=== PATIENT | female | born 1940 | race Caucasian/White ===

== ENCOUNTER → 2019-09-22 | Outpatient (CLI) | payer OTHER ==
[~2019-09-22] MED LIST: AMITRIPTYLINE H25 M2 PO; ASPIR 8181 MG PO; CARDURA4 MG PO; CIPRO500 MG PO; COLACE100 MG PO; COUMADIN 5 MG TA5 M1 PO; CYCLOBENZAPRINE10 MG PO; DUONEB 2.5-0.5 M3 ML INH; FELODIPINE 5 MG5 M1 PO; FLAGYL500 MG PO; FLEXERIL PO; FLONASE 0.05%50 MCG NASAL; LASIX 40 MG TAB40 M2 PO; LEVOTHYROXINE0.05 MG PO; MUCINEX600 MG PO; PIOGLITAZONE30 MG PO; POTASSIUM20 PO; QUINAPRIL HCL40 MG PO; TESSALON PERLE100 MG PO; TORSEMIDE20 MG PO; ZOCOR40 MG PO; ZYRTEC10 MG PO
== END ==
LOC: SJCVC 10:58
PROVIDERS: ATTEND Internal Medicine Cardiovascular Disease
DX: R94.31 Abnormal electrocardiogram [ECG] [EKG] (principal); I44.0 Atrioventricular block, first degree; I44.7 Left bundle-branch block, unspecified; I35.0 Nonrheumatic aortic (valve) stenosis; I27.20 Pulmonary hypertension, unspecified; E78.00 Pure hypercholesterolemia, unspecified; I12.9 Hypertensive chronic kidney disease with stage 1 through stage 4 chronic kidney disease, or unspecified chronic kidney disease; N18.4 Chronic kidney disease, stage 4 (severe); E66.01 Morbid (severe) obesity due to excess calories; Z90.710 Acquired absence of both cervix and uterus; Z90.49 Acquired absence of other specified parts of digestive tract; Z79.899 Other long term (current) drug therapy; Z86.79 Personal history of other diseases of the circulatory system

== ENCOUNTER → 2020-05-17 | Outpatient (CLI) | payer OTHER | LOC: SJCVCIMAG 08:29 | PROVIDERS: ATTEND Internal Medicine Cardiovascular Disease | DX: I34.0 Nonrheumatic mitral (valve) insufficiency (principal); I44.7 Left bundle-branch block, unspecified; R94.31 Abnormal electrocardiogram [ECG] [EKG]; I48.91 Unspecified atrial fibrillation; I13.0 Hypertensive heart and chronic kidney disease with heart failure and stage 1 through stage 4 chronic kidney disease, or unspecified chronic kidney disease; E11.22 Type 2 diabetes mellitus with diabetic chronic kidney disease; N18.4 Chronic kidney disease, stage 4 (severe); I50.9 Heart failure, unspecified; E78.00 Pure hypercholesterolemia, unspecified; R60.9 Edema, unspecified; E03.9 Hypothyroidism, unspecified; E78.5 Hyperlipidemia, unspecified; E66.01 Morbid (severe) obesity due to excess calories; Z79.82 Long term (current) use of aspirin; Z79.899 Other long term (current) drug therapy; Z82.49 Family history of ischemic heart disease and other diseases of the circulatory system; Z87.891 Personal history of nicotine dependence ==

== ENCOUNTER 2020-09-03 12:46 | Inpatient (IN) | payer OTHER ==
[~2020-09-03] VITALS: Ht 160 cm; Wt 140.6 kg
[2020-09-03 12:49] VITALS: BP 129/72
[2020-09-03 14:00] LABS: ABSOLUTE NEUTROPHILS 7.1 thou/uL (1.4-8.2); BASOPHILS 0.5 % (0.0-2.0); HEMATOCRIT 27.6 % (37.0-47.0); HEMOGLOBIN 8.9 gm/dL (12.0-15.0); LYMPHOCYTES 16.5 % (24.0-44.0); MCH 28.7 pg (26.0-34.0); MCHC 32.2 g/dL (28.0-37.0); MCV 89.4 fL (80.0-100.0); MONOCYTES 9.2 % (1.0-8.0); PLATELET COUNT 264 thou/uL (150-400); POLYS 71.8 % (36.0-66.0); RBC 3.09 mil/uL (4.20-5.00); RDW 15.2 % (10.5-14.5); WBC 9.8 thou/uL (4.0-11.0)
[2020-09-03 14:10] LABS: CALCIUM 9.4 mg/dL (8.5-10.1); CREATININE 3.7 mg/dL (0.6-1.0); POTASSIUM 4.7 mmol/L (3.5-5.1)
[2020-09-03 14:13] LABS: URINE BILIRUBIN NEGATIVE (Negative); URINE BLOOD TRACE (Negative); URINE CLARITY CLEAR; URINE COLOR YELLOW; URINE GLUCOSE-RANDOM* NEGATIVE (Negative); URINE KETONES NEGATIVE (Negative); URINE LEUKOCYTES-REFLEX 1+ (Negative); URINE NITRITE-REFLEX NEGATIVE (Negative); URINE PROTEIN (DIPSTICK) NEGATIVE (Negative); URINE UROBILINOGEN 0.2 E.U./dl (0.2-1.0)
[2020-09-03 14:16] LABS: ALBUMIN 3.6 g/dL (3.4-5.0); TOTAL BILIRUBIN 0.4 mg/dL (0.2-1.0); TOTAL PROTEIN 7.4 g/dL (6.4-8.2)
[2020-09-03 14:20] VITALS: BP 95/63
[2020-09-03 14:22] LABS: HYALINE CASTS 0-3 Few /LPF (None Seen); SQUAMOUS 4-10 Moderate /LPF (0-3)
[2020-09-03 14:23] LABS: CRYSTALS None Seen /LPF (None Seen); URINE RBC 1-2 Rare /HPF (NONE SEEN); URINE WBC-REFLEX 0-5 Rare /HPF (0-5); WBC CLUMPS Rare (None Seen)
[2020-09-03] MEDS ORDERED: ACCUPRIL40 MG PO (14:29)
[2020-09-03] MEDS ORDERED: SIMVASTATIN80 MG PO (14:30)
[2020-09-03] MEDS ORDERED: LEVO-T75 MCG PO (14:30)
[2020-09-03] MEDS ORDERED: PLAQUENIL200 MG PO (14:31)
[2020-09-03] MEDS ORDERED: AMITRIPTYLINE H25 M3 PO (14:31)
[2020-09-03] MEDS ORDERED: VITAMIN D31250 MCG PO (14:32)
[2020-09-03 16:02] VITALS: BP 159/49
[2020-09-03 16:59] VITALS: BP 125/50
--- NOTE | 2020-09-03 18:25 | NUR ---
pt admitted 362, pt alert and oriented x4, denies any nausea and vomitting. denies any chest pain. on room air and weras cpap at night times for sleep apnea. library monitor placed. pt has a left big blister on her foot, picture taken. adams catheter in place from ER, patent and secured. pt oriented to room. call light and table within reach. pt daughter in room visiting. fall precautions in place. all consents signed by pt. denies any needs at moment. will continue to monitor.
[2020-09-03 23:59] VITALS: BP 120/46
[2020-09-04 03:18] VITALS: BP 131/46
[2020-09-04 07:39] VITALS: BP 116/39
[2020-09-04 08:16] LABS: CALCIUM 8.7 mg/dL (8.5-10.1); CREATININE 3.5 mg/dL (0.6-1.0); PHOSPHORUS 4.5 mg/dL (2.5-4.9); POTASSIUM 4.2 mmol/L (3.5-5.1)
[2020-09-04 11:12] VITALS: BP 139/52
[2020-09-04 13:46] LABS: PROT/CREAT RATIO 0.2; URINE CREATININE-RANDOM* 52.3 mg/dL; URINE PROTEIN-RANDOM* 12.1 mg/dL (<11.9)
[2020-09-04 19:24] VITALS: BP 141/59
[2020-09-05 04:15] VITALS: BP 135/52
--- NOTE | 2020-09-05 04:38 | NUR ---
SLEPT PART OF SHIFT. DENIES COMPLAINTS OF PAIN, STATES SHORTNESS OF AIR IS SAME USUAL. ASSIST TO REPOSITION FOR COMFORT AND SKIN CARE. PERICARE COMPLETED. MAINTAIN FLUID RESTRICTION AND SAFE ENVIRONMENT. WORKING ON GOALS AND PLAN OF CARE FOR NOC. CONTINUE TO ASSES CLOSELY.
[2020-09-05 04:53] LABS: HEMATOCRIT 23.9 % (37.0-47.0); HEMOGLOBIN 7.8 gm/dL (12.0-15.0); MCH 29.1 pg (26.0-34.0); MCHC 32.6 g/dL (28.0-37.0); MCV 89.3 fL (80.0-100.0); RBC 2.67 mil/uL (4.20-5.00); RDW 14.8 % (10.5-14.5); WBC 10.4 thou/uL (4.0-11.0)
[2020-09-05 04:55] LABS: CALCIUM 8.7 mg/dL (8.5-10.1); CREATININE 3.1 mg/dL (0.6-1.0); POTASSIUM 3.6 mmol/L (3.5-5.1)
[2020-09-05 07:44] VITALS: BP 153/64
[2020-09-05 10:38] LABS: % SATURATION 11 % (20-39); IRON 33 ug/dL (50-170); TIBC 308 ug/dL (250-450)
[2020-09-05 11:23] VITALS: BP 151/55
--- NOTE | 2020-09-05 14:55 | EKG ---
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
--- NOTE | 2020-09-05 15:10 | EKG ---
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
[2020-09-05 15:18] VITALS: BP 156/65
--- NOTE | 2020-09-05 18:34 | NUR ---
PT NOW SLEEPING AND RESPIRAITONS ARE EVEN AND UNLABORED. WOUND TO RIGHT LLE DRESSED. SHE COMPLAINED OF PAIN TO RIGHT SHOULDER AND ICE AND TYLENOL DID THE TRICK. FAMILY HERE WITH PATIENT ALL DAY. WILL CONT WITH PLAN OF CARE.
[2020-09-05 19:32] VITALS: BP 124/57
[2020-09-06 04:21] VITALS: BP 118/52
[2020-09-06 05:24] LABS: HEMATOCRIT 23.8 % (37.0-47.0); HEMOGLOBIN 7.5 gm/dL (12.0-15.0); MCH 28.5 pg (26.0-34.0); MCHC 31.5 g/dL (28.0-37.0); MCV 90.3 fL (80.0-100.0); RBC 2.64 mil/uL (4.20-5.00); RDW 15.3 % (10.5-14.5); WBC 15.5 thou/uL (4.0-11.0)
[2020-09-06 05:28] LABS: CALCIUM 8.5 mg/dL (8.5-10.1); CREATININE 3.1 mg/dL (0.6-1.0); POTASSIUM 3.5 mmol/L (3.5-5.1)
--- NOTE | 2020-09-06 06:30 | NUR ---
VSS OVERNIGHT. PT ON CPAP AT HS. GAVE TYLENOL X2 FOR LOWER LEG PAIN. WBC'S ELEVATED PER AM LAB. BUN AND CR ALSO STILL ELEVATED. ASENCIO IN PLACE WITH GOOD OUTPUT. CALL LIGHT WITHIN REACH.
[2020-09-06 07:23] VITALS: BP 1124/43
[2020-09-06 11:03] VITALS: BP 132/43
--- NOTE | 2020-09-06 11:21 | NUR ---
CM S/W PT AND HER DTR, BITA, AT BEDSIDE. PT LIVES HOME ALONE IN A HANDICAP ACCESSIBLE DUPLEX. . BITA IS PT'S C/G HELPS WITH ADLS AND CHORES. PT USES CPAP, THROUGH [facility], AND W/C. PT DENIES HX WITH HH OR SNF. BITA INQUIRED ABOUT HH "HELPING WITH HER FOOT." PT LIVES IN [facility]. CM TO CONT TO FOLLOW.
--- NOTE | 2020-09-06 11:34 | NUR ---
Nutrition: pt admit with CKD, BLE swelling. PMH: CKD stage 5, DM, osteo left leg, HTN. Fluid overload, nephrology managing diuresis, now with good urine output. Consult received related to diet instruction. pt voices familiarity with diet and did not want RD to review however accepted materials. Dtr with a few questions related to fluid restriction which were answered. Stressed importance of Na+ restriction above all. Low nutrition risk.
[2020-09-06] MEDS ORDERED: TORSEMIDE20 MG PO (12:04)
[2020-09-06] MEDS ORDERED: CEPHALEXIN500 MG PO (12:05)
[2020-09-06 13:31] VITALS: BP 132/43
[2020-09-06 19:25] VITALS: BP 130/54
--- NOTE | 2020-09-06 21:00 | NUR ---
Asisted with discharging pt today, held off discharge once spoke to Dr. Hernandez and CM regarding potential need for PT and OT. Pt and family both would like to explore skill facility or our rehab unit. Pt back in room with family. Placed back in bed via chelsea lift, call light was placed with in reach, family at side.
--- NOTE | 2020-09-07 02:42 | NUR ---
ASSUMED PT CARE AT 1900.PT C/O PAIN TO HER LOWER EXT,MAANGED WITH MED.ICE PACK TO HER R SHOULDER PAIN PER PT'S REQUEST.DRSG TO HER R FOOT DRY AND INTACT.NO STOOL YET FOR OCCULT BLOOD.PT IS AMX ASSIST.FEMALE EXT CATH IN PLACE.EDEMA TO HER BLE NOTED.PT SLEEPING WITH A CPAP.CALL LIGHT WITHIN REACH.
[2020-09-07 04:26] VITALS: BP 136/52
[2020-09-07 07:53] VITALS: BP 143/51
--- NOTE | 2020-09-07 08:29 | HC ---
[facility] [place] [address] CONSULTATION Name: VIPIN MORALES Room #: 362-P ADM IN M.R.#: [id number] Admission: 09/03/20 Attend Phys: Oanh Shafer MD Discharge: Date of : 40 Report #: [id number] THIS REPORT FOR: cc: José Francis,Kodi Haque MD ~ DATE OF SERVICE: 09/03/2020 WOUND CARE CONSULTATION NOTE REASON FOR CONSULTATION: Cellulitis of lower extremities with red, blistered cellulitic wound, dorsum right foot. HISTORY OF PRESENT ILLNESS: The patient is a 79-year-old woman with chronic kidney disease stage 4, edema of her lower extremities, admitted by web production artist to the Emergency Room for diuresis. She was noted to have a reddened blistered area in the dorsum of her right foot. She is currently on IV ceftriaxone. She feels that the wound is somewhat improved. She complained of tenderness, redness, drainage in the dorsum of the right foot over several days. She denies any trauma. The patient noticed some weight gain and edema of her lower extremities. Her web production artist advised her to come to the Emergency Room for diuresis due to finding of cellulitis of the foot. She is admitted for IV antibiotics. Wound Care is consulted. PAST MEDICAL HISTORY: Morbid obesity, diabetes mellitus type 2, chronic kidney disease stage 4, iron deficiency anemia, history of pulmonary emboli. ALLERGIES: ONLY TO CODEINE. LABORATORY DATA: Sodium 148, potassium 4.7, creatinine 3.7, albumin 3.6. Hemoglobin 8.9, hematocrit 27.6. On repeat; hemoglobin 7.8, hematocrit 23.9. REVIEW OF SYSTEMS: The patient complained of some swelling of the lower extremities, redness and tenderness in the dorsum of the right foot. PHYSICAL EXAMINATION: GENERAL: Shows an alert, pleasant, elderly woman with morbid obesity. LUNGS: Respirations are unlabored. HEENT: Mucous membranes are moist. Sclerae are white. ABDOMEN: Obese. EXTREMITIES: Examination of the lower extremities shows obese lower extremities with mild lymphedema. She has some swelling of both lower extremities, more noticeable on the right. There is marked swelling of the dorsum of the right foot. In the mid dorsum of the right foot, there is a 3 cm x 3 cm more raised area with some reddening of the skin and a raised clear blister with clear [address] [address] CONSULTATION Name: VIPIN MORALES Room #: 362-P ADM IN .R.#: [id number] Admission: 09/03/20 Attend Phys: Oanh Shafer MD Discharge: Date of : 40 Report #: [id number] serous fluid. Using a sterile needle, blisters were ruptured and wound cultures done of the serous fluid. Ordered for topical mupirocin 2%, Xeroform, Optifoam and a Kerlix dressing. IMPRESSION: 1. Morbid obesity. 2. Chronic kidney disease stage 4, creatinine 3.7 with edema of lower extremities, admitted for diuresis. 3. Cellulitis, dorsum of the right foot with reddened blistered area, IV ceftriaxone, topical mupirocin. Wound culture done. No evidence of trauma, may be related to her edema. 4. Iron deficiency anemia. PLAN: Wound care plan with elevation of the right foot. Topical mupirocin 2%, Xeroform, Optifoam and a Kerlix dressing. Wound cultures done and IV ceftriaxone. Ordered lower extremity arterial Dopplers so that compression therapy can be considered for the edema. Once cellulitis is cleared, wound care team will follow. <ELECTRONICALLY SIGNED> By: Kodi Fields MD 09/07/20 0829 0807 1031 Kodi Fields MD /nt
[2020-09-07 09:30] LABS: ALBUMIN 2.7 g/dL (3.4-5.0); CALCIUM 9.1 mg/dL (8.5-10.1); CREATININE 3.3 mg/dL (0.6-1.0); PHOSPHORUS 4.5 mg/dL (2.6-4.7); POTASSIUM 3.6 mmol/L (3.5-5.1)
[2020-09-07 11:40] VITALS: BP 137/48
--- NOTE | 2020-09-07 14:31 | NUR ---
JHONNY reviewed chart and spoke with nursing and attending physician. Pt's discharge yesterday was canceled. PT/OT and 5N consult ordered. Pt does not meet admission criteria for 5N. Pt is too low level. JHONNY met with pt, dtr and son-in-law at bedside to discuss discharge plan. Pt has been to 5N in the past. Pt and family verbalized understanding of pt not meeting admission criteria for 5N at this time. Pt's family reviewed in-network SNF list. Pt and family request referral to [facility] in [place]. Pt's family request alternate options for SNFs in [place]. JHONNY explained that pt may have [id number] benefits at other facilities. JHONNY faxed referral to [facility] and spoke with Manisha in admissions. Info also faxed to [facility] for review. Request for SNF auth documented. Per Manisha at [facility], the facility is able to accept pt from a clinical standpoint. Pt will need a COVID test prior to discharge (3 days prior to admission to their facility). Pt has had two doses of the COVID vaccine. [facility] may be tight on beds. JHONNY met with pt's dtr, Mary, to provide update. Mary asked how she can assist with insurance auth. SW encouraged pt/dtr to speak with pt's insurance. Mary called [facility]. Ref# [id number] provided. JHONNY provided this info to [facility] for review. JHONNY requested COVID test to be ordered. JHONNY is following to assist as needed with discharge planning.
[2020-09-07 16:06] VITALS: BP 135/39
[2020-09-07 20:01] VITALS: BP 127/47
--- NOTE | 2020-09-08 04:31 | NUR ---
DRESSING CHANGE DONE THIS AM. PT COMPLAINS OF SOME PAIN / THROBBING/ BURNING TO HER RT FOOT. SHE HAS PAIN WHEN THE FOOT IS LIFTED OFF THE BED. SHE IS AWARE OF THE PLAN OF DISCHARGE TO A SNF NEAR [place].
[2020-09-08 04:48] LABS: HEMATOCRIT 21.9 % (37.0-47.0); HEMOGLOBIN 7.1 gm/dL (12.0-15.0); MCH 28.6 pg (26.0-34.0); MCHC 32.2 g/dL (28.0-37.0); MCV 88.9 fL (80.0-100.0); RBC 2.46 mil/uL (4.20-5.00); RDW 14.9 % (10.5-14.5); WBC 13.2 thou/uL (4.0-11.0)
[2020-09-08 04:51] VITALS: BP 144/51
[2020-09-08 05:21] LABS: CALCIUM 8.5 mg/dL (8.5-10.1); POTASSIUM 3.2 mmol/L (3.5-5.1)
[2020-09-08 07:36] VITALS: BP 118/42
--- NOTE | 2020-09-08 09:34 | NUR ---
KATHY F/U WITH JOCELYNE AT [facility], AND WAS TOLD THAT THE ARE UNABLE TO ACCEPT PT D/T [facility] THEY ACCEPTED ANOTHER PT WHO INSUR AUTH CAME BACK BEFORE VIPIN'Rey.
[2020-09-08 11:33] VITALS: BP 110/71
--- NOTE | 2020-09-08 15:15 | NUR ---
ASSUMED PT CARE AT SHIFT CHANGE, PT DAUGHTER ARRIVED LATER MORNING. PT WAS EXHAUSTED FROM LAST NIGHT, REQUESTED TO SLEEP MORE THIS MORNING. PT WAITING ON SNF ACCEPTANCE, IS WANTING TO BE CLOSE TO HOME IN [place]. FACILITY IN [place] HAS CALLED PT FAMILY WITH ACCEPTANCE, VM SENT TO KATHY [facility]ARRO.
[2020-09-08 16:17] VITALS: BP 148/61
--- NOTE | 2020-09-08 16:20 | NUR ---
[facility] INDICATED THEY CAN MEDICALLY ACCPET PT. PT'S DTR, BITA GAVE PERMISSION FOR IS TO SUBMIT FOR AUTHORIZATION.
[2020-09-08 19:55] VITALS: BP 166/59
[2020-09-09 04:20] VITALS: BP 147/61
--- NOTE | 2020-09-09 05:04 | NUR ---
PT HAS CONSTANT COMPLAINTS OF PAIN EVEN WHEN PAIN MEDICATION GIVEN, ASKING FOR IT ABOUT 3-4 HOURS AFTER GIVEN. PT REQUESTED ICE BAGS ON FEET OVERNIGHT. EXTERNAL CATH IN PLACE. HOURLY ROUNDING.
[2020-09-09 07:35] VITALS: BP 158/60
[2020-09-09 10:02] LABS: HEMATOCRIT 23.7 % (37.0-47.0); HEMOGLOBIN 7.5 gm/dL (12.0-15.0); MCH 27.8 pg (26.0-34.0); MCHC 31.4 g/dL (28.0-37.0); MCV 88.4 fL (80.0-100.0); RBC 2.68 mil/uL (4.20-5.00); RDW 15.2 % (10.5-14.5)
[2020-09-09 10:12] LABS: CALCIUM 8.6 mg/dL (8.5-10.1); CREATININE 2.6 mg/dL (0.6-1.0)
[2020-09-09 11:10] VITALS: BP 113/73
--- NOTE | 2020-09-09 14:45 | NUR ---
DISCHARGE NOTE: JHONNY reviewed chart and spoke with nursing and attending physician. Pt is medically stable for discharge to [facility] today pending insurance authorization. JHONNY received call from Nila at [facility] ([phone]) who states they have authorized pt to go to [facility]. Auth # [id number] provided. Next review date to be on 09/14. This info to be provided to the SNF per [facility]. JHONNY spoke with Qiana at [facility] who confirmed they received auth and can accept pt. Pt needing stretcher van transportation. [facility] is unable to arrange stretcher van. JHONNY arranged stretcher van transportation through [employer] between [id number]. Transportation approved by Director of Case Mgmt. JHONNY met with pt and dtrMary, at bedside to provide update and discuss discharge plan. Both are aware and agreeable with discharge plan. Chart copy requested. Nursing provided with number to call report. No additional SW needs identified at this time, but is available to assist should needs arise.
[2020-09-09 16:06] VITALS: BP 149/45
[2020-09-09 16:49] VITALS: BP 149/45
--- NOTE | 2020-09-14 09:43 | HC ---
[facility] [address] CONSULTATION Name: VIPIN MORALES Room #: 362-P [facility] IN M.R.#: [id number] Admission: 09/03/20 Attend Phys: Oanh Shafer MD Discharge: 09/09/20 Date of : 40 Report #: [id number] THIS REPORT FOR: cc: José Francis Steven F. DO Mancuso, Gerald M. MD [facility] ~ DOC #: [id number] Edward Pace MD DATE OF SERVICE: 09/03/2020 HISTORY OF PRESENT ILLNESS: The patient is a 79-year-old female who is admitted and I am asked to consult for some progressive heart failure, peripheral edema, weight gain and a large right foot vesicle. She has a long history of stage 4-5, chronic kidney disease. Also, underlying metabolic syndrome, diastolic dysfunction with diastolic heart failure in the past. She has been relatively stable with preserved systolic function, with mild elevation of pulmonary pressures by echo done earlier this year. Increased edema, swelling, shortness of breath over the last 4-5 days, unresponsive to p.o. furosemide. She had followed with nephrology group who suggested increasing it on admission. She denies any chest pain or anginal complaints. She is mildly dyspneic, but not acutely decompensated. She has been compliant with her medications. MEDICATIONS: Furosemide 40 a day, Tessalon Perles, Zyrtec, quinapril, aspirin, Elavil, simvastatin 20, levothyroxine, Plaquenil 200 daily and vitamin D3. Question of felodipine for blood pressure in the past, Cardura, simvastatin. Pioglitazone may have been discontinued. ALLERGIES: CODEINE. PAST MEDICAL HISTORY: Positive for heart failure, diastolic dysfunction, chronic kidney disease stage IV/V worsening, morbid obesity, metabolic syndrome, osteomyelitis, degenerative joint disease, hypertension, diabetes, sleep apnea, Lund's palsy. SOCIAL HISTORY: She lives in [place]. She is accompanied by her daughter and son-in-law. She lives with some family assistance. No alcohol or tobacco. FAMILY HISTORY: Negative for premature coronary artery disease. PHYSICAL EXAMINATION: GENERAL: She is pleasant. She is not in acute distress. VITAL SIGNS: Blood pressure 130/72, pulse 90s and regular. HEENT: Eyes reveal xanthelasmas. Pharynx is clear. NECK: Shows preserved upstrokes. Trace of JVD, no bruits. LUNGS: Diminished in the bases. CARDIAC: Distant heart tones. S1, [place] [address] CONSULTATION Name: VIPIN MORALES Room #: 362-P [facility] IN M.R.#: [id number] Admission: 09/03/20 Attend Phys: Oanh Shafer MD Discharge: 09/09/20 Date of : 40 Report #: [id number] ABDOMEN: Soft, obese, nontender. EXTREMITIES: Reveal 1 to 2+ edema. There is a right foot vesicle as approximately 3 cm. There is no evidence of significant erythema. NEUROLOGIC: Intact. MUSCULOSKELETAL: Generalized arthritic changes. She did not ambulate. Valgus deformity of the knees. LABORATORY DATA: Sodium 148, potassium 4.7, creatinine 3.7, BUN 67, alkaline phosphatase 124. BNP 1040. H and H 8.9 and 27.6, white count 9.8. Urine does not appear to have a UTI. Chest x-ray, cardiomegaly, otherwise in no acute process. ASSESSMENT: 1. Acute on chronic diastolic heart failure/morbid obesity/metabolic syndrome. 2. Chronic kidney disease stage V, worsening. Creatinine 3.7, GFR less than 15. 3. Hypertension. 4. Apparent diet-controlled diabetes. 5. Morbid obesity. 6. Degenerative joint disease. RECOMMENDATIONS AND PLAN: IV Lasix. Wound care to see, localized wound care. I suspect renal consult would be of benefit here, obviously may be trending toward dialysis, may need dialysis for volume. IV Lasix, may need to add additional metolazone. Some decompensation, but suspect most of this is primarily due to progressive renal dysfunction. We will discuss with Dr. Shafer. We have discussed with the family. We will follow with you. Thank you for allowing me to assist in the care of this patient. Edward Pace MD [facility] <ELECTRONICALLY SIGNED> By: Edward Pace MD, [facility] 09/14/20 0943 1829 [id number] Edward Pace MD, [facility] /nt
== END 2020-09-09 17:13 | DRG 291 ==
LOC: ER 12:46 → EROBS 16:02 → 3W 16:02 → ER 16:02 → EROBS 16:40 → 3W 16:40 → EROBS 18:07 → 3W 18:41
PROVIDERS: Hospitalist; Internal Medicine Cardiovascular Disease; Internal Medicine Nephrology; Nurse Practitioner; Nurse Practitioner Family; ADMIT Internal Medicine; ATTEND Internal Medicine
PROC: 5A09457 Assistance with Respiratory Ventilation, 24-96 Consecutive Hours, Continuous Positive Airway Pressure (ICD-10-PCS; principal; 2020-09-05)
DX: I13.0 Hypertensive heart and chronic kidney disease with heart failure and stage 1 through stage 4 chronic kidney disease, or unspecified chronic kidney disease (principal); I50.33 Acute on chronic diastolic (congestive) heart failure; N17.0 Acute kidney failure with tubular necrosis; E87.0 Hyperosmolality and hypernatremia; N18.5 Chronic kidney disease, stage 5; L03.115 Cellulitis of right lower limb; N39.0 Urinary tract infection, site not specified; E44.0 Moderate protein-calorie malnutrition; Z68.43 Body mass index [BMI] 50.0-59.9, adult; Z20.822 Contact with and (suspected) exposure to COVID-19; E11.22 Type 2 diabetes mellitus with diabetic chronic kidney disease; E66.01 Morbid (severe) obesity due to excess calories; I35.0 Nonrheumatic aortic (valve) stenosis; I27.20 Pulmonary hypertension, unspecified; D63.8 Anemia in other chronic diseases classified elsewhere; E88.81 Metabolic syndrome and other insulin resistance; D50.9 Iron deficiency anemia, unspecified; G47.33 Obstructive sleep apnea (adult) (pediatric); E11.628 Type 2 diabetes mellitus with other skin complications; M17.0 Bilateral primary osteoarthritis of knee; I05.2 Rheumatic mitral stenosis with insufficiency; R53.81 Other malaise; K59.00 Constipation, unspecified; E87.6 Hypokalemia; Z90.49 Acquired absence of other specified parts of digestive tract; Z90.710 Acquired absence of both cervix and uterus; Z88.6 Allergy status to analgesic agent; Z87.891 Personal history of nicotine dependence; Z79.899 Other long term (current) drug therapy; Z80.0 Family history of malignant neoplasm of digestive organs; Z86.711 Personal history of pulmonary embolism; Z79.82 Long term (current) use of aspirin
CPT/HCPCS: 10779; 10879